=== PATIENT | male | born 1965 | race Caucasian/White ===

== ENCOUNTER 2017-08-07 21:32 | Emergency (ER) | payer OTHER, MEDICAID ==
[~2017-08-07] VITALS: Ht 177.8 cm; Wt 97.6 kg
[2017-08-07 23:19] LABS: UA SPECIFIC GRAVITY 1.015 (1.005-1.035); microscopic required? YES; urine erythrocyte 2+ (NEGATIVE)
[2017-08-08 01:52] VITALS: BP 123/72
== END 2017-08-08 01:52 | disposition home or self-care (01) ==
LOC: ED 21:32
PROVIDERS: Specialist
DX: N20.1 Calculus of ureter (principal); Z87.442 Personal history of urinary calculi
CPT/HCPCS: 83880; J1170; J1885; J2270; J7030; Q0162